=== PATIENT | male | born 1960 | race Two or more races ===

== ENCOUNTER 2022-09-06 03:10 | Emergency (ER) | payer MEDICARE, MEDICAID ==
[~2022-09-06] VITALS: Ht 182.9 cm; Wt 77.0 kg
[2022-09-06 03:13] VITALS: O2SAT 100
[2022-09-06] MEDS ORDERED: KETOROLAC 30MG/ML VIAL IV STA (03:41)
[2022-09-06] MEDS ORDERED: FAMOTIDINE 20MG/2ML VIAL IV ONE (03:45)
[2022-09-06] MEDS ORDERED: SODIUM CHLORIDE 0.9% 1,000 ML IV ONE ×2 (03:45→06:45)
[2022-09-06] MEDS ORDERED: ONDANSETRON HCL 4MG/2ML INJ IV ONE (03:45)
[2022-09-06 04:20] LABS: HEMATOCRIT. 53.4 % (42.0-52.0); HEMOGLOBIN. 17.6 g/dL (14.0-18.0); MEAN CORPUSCULAR HEMOGLOBIN 29.8 pg (28.0-32.0); MEAN CORPUSCULAR VOLUME 90.5 fL (80.0-94.0); MEAN PLATELET VOLUME 8.2 fl (7.4-10.4); PLATELET 338 x1000/uL (130-400); RED CELL DISTRIBUTION WIDTH 18.3 % (11.6-14.6)
[2022-09-06 04:27] LABS: CHLORIDE 87 mEq/L (98-107)
[2022-09-06 04:36] LABS: ETHANOL BLOOD < 10 mg/dL (-10)
[2022-09-06 05:00] LABS: PLATELET ESTIMATE NORMAL
[2022-09-06 06:35] LABS: CLARITY URINE CLEAR (CLEAR); COLOR URINE YELLOW (YELLOW); KETONES URINE 4+ (NEGATIVE); LEUKOCYTE ESTERASE URINE NEGATIVE (NEGATIVE); NITRITE URINE NEGATIVE (NEGATIVE); OCCULT BLOOD URINE NEGATIVE (NEGATIVE); PH URINE 5.5 (4.5-8.0); PROTEIN URINE 2+ (NEGATIVE); SPECIFIC GRAVITY URINE 1.022 (1.005-1.030)
[2022-09-06] MEDS ORDERED: ONDANSETRON HCL 4MG/2ML INJ IV STA (06:42)
[2022-09-06] MEDS ORDERED: HYDROCODONE/ACETAMINOPHEN 5/325MG TABLET PO STA (06:42)
[2022-09-06 06:53] LABS: *AMPHETAMINES SCREEN URINE NEGATIVE (NEGATIVE); *BARBITURATES SCREEN URINE NEGATIVE (NEGATIVE); *BENZODIAZEPINES SCREEN URINE NEGATIVE (NEGATIVE); *COCAINE SCREEN URINE NEGATIVE (NEGATIVE); CANNABINOID URINE SCREEN PRESUMTIVE POSITIVE (NEGATIVE); METHADONE URINE SCREEN NEGATIVE (NEGATIVE); OPIATES URINE SCREEN PRESUMTIVE POSITIVE (NEGATIVE); PHENCYCLIDINE URINE SCREEN NEGATIVE (NEGATIVE)
[2022-09-06] MEDS ORDERED: OXYCODONE HCL/ACETAMINOPHEN 5/325MG TABLET PO ONE (07:15)
[2022-09-06] MEDS ORDERED: AMOX1TAB16 PO ×3 (07:28→09:01)
[2022-09-06] MEDS ORDERED: ONDA4TAB50 PO ×3 (07:28→09:01)
[2022-09-06] MEDS ORDERED: TOPUD PO ×3 (07:28→09:01)
[2022-09-06] MEDS ORDERED: ONDANSETRON HCL 4MG TABLET PO ONE (07:45)
[2022-09-06 09:11] VITALS: BP 128/95; PULSE 84; RESP 16; TEMP 97.8
== END 2022-09-06 09:13 | disposition home or self-care (01) ==
LOC: ER 06:22
DX: K29.00 Acute gastritis without bleeding (principal); J02.9 Acute pharyngitis, unspecified; R11.2 Nausea with vomiting, unspecified; J44.1 Chronic obstructive pulmonary disease with (acute) exacerbation; Z20.822 Contact with and (suspected) exposure to COVID-19
CPT/HCPCS: 80053; 80305; 81003; 80320; 87430; 83690; 85025; 87070; 36415; 96361; 96374; 96375; 99284; 87426; J3490; J1885; J2405; J7030; C9803; G0480

== ENCOUNTER 2022-11-17 12:38 | Inpatient (IN) | payer MEDICARE, MEDICAID ==
[~2022-11-17] VITALS: Ht 180.3 cm; Wt 63.5 kg
[~2022-11-17 12:38] MED LIST: AMOX1TAB16 PO; ONDA4TAB50 PO; TOPUD PO
[2022-11-17] MEDS ORDERED: SODIUM CHLORIDE 0.9% 1,000 ML IV ONE (12:45)
[2022-11-17] MEDS ORDERED: PANTOPRAZOLE SODIUM 40 MG/VIAL IV ONE (13:15)
[2022-11-17 13:27] LABS: HEMOGLOBIN. 17.1 g/dL (14.0-18.0); MEAN CORPUSCULAR HEMOGLOBIN 29.7 pg (28.0-32.0); MEAN CORPUSCULAR HGB CONC 31.7 g/dL (31.0-37.0); MEAN CORPUSCULAR VOLUME 93.6 fL (80.0-94.0); MEAN PLATELET VOLUME 8.4 fl (7.4-10.4); PLATELET 198 x1000/uL (130-400); RED BLOOD CELL COUNT 5.77 mill/uL (4.7-6.1); RED CELL DISTRIBUTION WIDTH 17.3 % (11.6-14.6); WHITE BLOOD COUNT 11.3 x1000/uL (4.5-11.0)
[2022-11-17 13:35] LABS: DIFFERENTIAL COMMENT 1
[2022-11-17 13:37] LABS: INDEX HEMOLYSI 2 (1-3); INDEX ICTERIC 1 (1-4); INDEX LIPEMIC 1 (1-3)
[2022-11-17 13:45] LABS: D-DIMER 11.26 mg/L FEU (<0.50); INR 0.9; PROTHROMBIN TIME 10.2 sec (9.6-11.0)
[2022-11-17 13:49] LABS: NT PRO B-TYPE NATRIURETIC PEP 446 pg/mL (5-125)
[2022-11-17 13:52] LABS: ETHANOL BLOOD 407 mg/dL (-10); TROPONIN I HIGH SENSITIVITY 746 ng/L (<78)
[2022-11-17 14:06] LABS: PLATELET ESTIMATE NORMAL
[2022-11-17] MEDS ORDERED: ONDANSETRON HCL 4MG/2ML INJ IV NR (14:15)
[2022-11-17 14:46] LABS: ALANINE AMINOTRANSFERASE 101 IU/L (13-61); ALBUMIN 3.7 g/dL (3.4-5.0); ASPARTATE AMINOTRANSFERASE 217 IU/L (15-37); BILIRUBIN TOTAL 0.9 mg/dL (0.1-1.0); CALCIUM 8.1 mg/dL (8.5-10.1); CARBON DIOXIDE 14 mEq/L (21-32); CHLORIDE 88 mEq/L (98-107); CREATININE 1.4 mg/dL (0.6-1.3); GLUCOSE 134 mg/dL (70-105); POTASSIUM 3.7 mEq/L (3.5-5.1); PROTEIN TOTAL 7.8 g/dL (6.0-8.3); SODIUM 139 mEq/L (136-145); UREA NITROGEN BLOOD 20 mg/dL (7-21)
[2022-11-17] MEDS ORDERED: ASPIRIN 81MG TABLET PO ONE (15:00)
[2022-11-17] MEDS ORDERED: SODIUM CHLORIDE 0.9% 1000ML BAG (SEPSIS BOLUS) IV ONE (15:45)
[2022-11-17 16:45] LABS: LACTIC ACID 7.2 mmol/L (0.4-2.0)
[2022-11-17] MEDS ORDERED: VANCOMYCIN 1G PREMIX 200 ML IV ONE (17:30)
[2022-11-17] MEDS ORDERED: FOLIC ACID 1 MG, THIAMINE HCL 100 MG, MVI, ADULT NO.1 10 ML in DEXTROSE 5% WATER 1,000 ML IV ONE ×4 (17:30)
[2022-11-17] MEDS ORDERED: PIPERACILLIN/TAZ 3.375G PREMIX 50 ML IV ONE (17:30)
[2022-11-17 17:49] LABS: CLARITY URINE CLOUDY (CLEAR); COLOR URINE DARK YELLOW (YELLOW); GLUCOSE URINE NEGATIVE (NEGATIVE); KETONES URINE 2+ (NEGATIVE); LEUKOCYTE ESTERASE URINE NEGATIVE (NEGATIVE); NITRITE URINE NEGATIVE (NEGATIVE); OCCULT BLOOD URINE NEGATIVE (NEGATIVE); PH URINE 5.5 (4.5-8.0); PROTEIN URINE 2+ (NEGATIVE); SPECIFIC GRAVITY URINE 1.019 (1.005-1.030)
[2022-11-17 17:52] LABS: SQUAMOUS EPITHELIAL CELL URINE 1+ /lpf (RARE/1+); YEAST URINE NONE SEEN
[2022-11-17 17:59] LABS: PHOSPHORUS 6.3 mg/dL (2.5-4.9)
[2022-11-17] MEDS ORDERED: DIPHENHYDRAMINE 50MG/ML VIAL IV PRN (18:00)
[2022-11-17 18:03] LABS: *AMPHETAMINES SCREEN URINE NEGATIVE (NEGATIVE); *BARBITURATES SCREEN URINE NEGATIVE (NEGATIVE); *BENZODIAZEPINES SCREEN URINE NEGATIVE (NEGATIVE); *COCAINE SCREEN URINE NEGATIVE (NEGATIVE); CANNABINOID URINE SCREEN PRESUMTIVE POSITIVE (NEGATIVE); ECSTASY MDMA SCREEN URINE NEGATIVE (NEGATIVE); METHADONE URINE SCREEN NEGATIVE (NEGATIVE); OPIATES URINE SCREEN NEGATIVE (NEGATIVE); PHENCYCLIDINE URINE SCREEN NEGATIVE (NEGATIVE)
[2022-11-17] MEDS ORDERED: PANTOPRAZOLE SODIUM 40 MG/VIAL IV SCH (18:15)
[2022-11-17 18:19] LABS: BACTERIA URINE 2+; FINE GRANULAR CASTS URINE 0-5 /lpf; HYALINE CASTS URINE 0-5 /lpf; RBC URINE 0-2 /hpf (0-2); WBC URINE 0-2 /hpf (0-2)
[2022-11-17] MEDS ORDERED: NALOXONE HCL 0.4MG/ML VIAL IV PRN (18:30)
[2022-11-17] MEDS: LEVETIRACETAM 500MG PREMIX 100 ML IV SCH (19:01)
[2022-11-17] MEDS ORDERED: OCTREOTIDE 1,000 MCG in SODIUM CHLORIDE 0.9% 100 ML IV NR ×2 (20:00→20:15)
[2022-11-17 21:00] VITALS: BP 113/76; PULSE 114; RESP 25; TEMP 97.5
[2022-11-17] MEDS ORDERED: IOHEXOL-350 100 ML BOTTLE ONE (21:07)
[2022-11-17] MEDS: ONDANSETRON HCL 4MG/2ML INJ IV PRN (21:51)
[2022-11-17] MEDS: MORPHINE SULFATE 2 MG/ML CPJ (NOT FOR IM USE) IV PRN (21:52)
[2022-11-17 22:00] VITALS: PULSE 125
[2022-11-17] MEDS ORDERED: PIPERACILLIN/TAZ 3.375G PREMIX 50 ML IV SCH (22:00)
[2022-11-17 22:08] LABS: LACTIC ACID 5.9 mmol/L (0.4-2.0)
[2022-11-18] VITALS (14 sets, daily range): BP systolic 119–154; BP diastolic 66–132; PULSE 98–169; RESP 12–31; TEMP 97.5–100.3
[2022-11-18] MEDS ORDERED: VANCOMYCIN 750MG PREMIX 150 ML IV SCH
[2022-11-18 00:31] LABS: CREATINE KINASE MB FRACTION 11.4 ng/mL (0.5-3.6)
[2022-11-18 01:20] LABS: HEMOGLOBIN 12.7 g/dL (14.0-18.0)
[2022-11-18] MEDS ORDERED: SODIUM CHLORIDE 0.9% 1,000 ML IV NR (01:45)
[2022-11-18] MEDS ORDERED: HYDROCODONE/ACETAMINOPHEN 5/325MG TABLET PO NR (02:30)
[2022-11-18 02:42] LABS: LACTIC ACID 4.8 mmol/L (0.4-2.0)
[2022-11-18] MEDS ORDERED: MORPHINE SULFATE 2 MG/ML CPJ (NOT FOR IM USE) IV NR (02:45)
[2022-11-18] MEDS: ONDANSETRON HCL 4MG/2ML INJ IV PRN ×2 (02:55→18:38)
[2022-11-18] MEDS: LORAZEPAM 2MG/ML CPJ IV PRN ×2 (04:03→10:36)
[2022-11-18] MEDS ORDERED: HYDR-4001 MT (05:46)
[2022-11-18] MEDS ORDERED: LORA-249 MT (05:46)
[2022-11-18] MEDS ORDERED: LEVE1000 MT (05:46)
[2022-11-18] MEDS ORDERED: TRAZ-251 MT (05:46)
[2022-11-18] MEDS: VANCOMYCIN 750MG PREMIX 150 ML IV SCH ×2 (06:17→17:50)
[2022-11-18] MEDS: PANTOPRAZOLE SODIUM 40 MG/VIAL IV SCH ×2 (06:41→17:50)
[2022-11-18] MEDS: PIPERACILLIN/TAZOBACTAM 3.375 G in DEXTROSE 5% WATER 50 ML IV SCH ×3 (06:56→22:00)
[2022-11-18] MEDS: MORPHINE SULFATE 2 MG/ML CPJ (NOT FOR IM USE) IV PRN ×3 (08:18→18:39)
[2022-11-18] MEDS ORDERED: MVI, ADULT NO.1 10 ML, THIAMINE HCL 100 MG, FOLIC ACID 1 MG in SODIUM CHLORIDE 0.9% 1,0... IV SCH ×4 (09:00)
[2022-11-18] MEDS ORDERED: THIAMINE HCL 100 MG/1 ML 2ML VIAL IM SCH (09:00)
[2022-11-18] MEDS: SODIUM CHLORIDE 0.9% 1,000 ML IV SCH (11:10)
[2022-11-18] MEDS: LEVETIRACETAM 500MG PREMIX 100 ML IV SCH ×2 (11:16→21:59)
[2022-11-18] MEDS ORDERED: METOPROLOL TARTRATE 5MG/5ML VIAL IV PRN (12:45)
[2022-11-18] MEDS: MVI, ADULT NO.1 10 ML, THIAMINE HCL 100 MG, FOLIC ACID 1 MG in SODIUM CHLORIDE 0.9% 1,0... IV SCH ×4 (12:49)
[2022-11-18 13:23] LABS: HEMATOCRIT 34.7 % (42.0-52.0); HEMOGLOBIN 11.6 g/dL (14.0-18.0); MEAN CORPUSCULAR HEMOGLOBIN 30.5 pg (28.0-32.0); MEAN CORPUSCULAR HGB CONC 33.3 g/dL (31.0-37.0); MEAN CORPUSCULAR VOLUME 91.4 fL (80.0-94.0); PLATELET 87 x1000/uL (130-400); RED BLOOD CELL COUNT 3.79 mill/uL (4.7-6.1); RED CELL DISTRIBUTION WIDTH 16.5 % (11.6-14.6); WHITE BLOOD COUNT 6.5 x1000/uL (4.5-11.0)
[2022-11-18] MEDS: CHLORDIAZEPOXIDE 25MG CAPSULE PO SCH ×2 (13:23→22:00)
[2022-11-18] MEDS ORDERED: XARELTO (14:00)
[2022-11-18 15:25] LABS: INDEX HEMOLYSI 1 (1-3); INDEX ICTERIC 1 (1-4); INDEX LIPEMIC 1 (1-3)
[2022-11-18 16:43] LABS: ALANINE AMINOTRANSFERASE 62 IU/L (13-61); ALBUMIN 2.6 g/dL (3.4-5.0); AMYLASE 66 IU/L (25-115); ASPARTATE AMINOTRANSFERASE 107 IU/L (15-37); BETA HYDROXYBUTYRATE 3.4 mMol/L (0.0-0.3); CALCIUM 7.3 mg/dL (8.5-10.1); CARBON DIOXIDE 26 mEq/L (21-32); CHLORIDE 104 mEq/L (98-107); CREATINE KINASE 126 IU/L (39-308); CREATINE KINASE MB FRACTION 10.5 ng/mL (0.5-3.6); CREATININE 0.8 mg/dL (0.6-1.3); GLUCOSE 233 mg/dL (70-105); POTASSIUM 3.9 mEq/L (3.5-5.1); PROTEIN TOTAL 5.5 g/dL (6.0-8.3); SODIUM 142 mEq/L (136-145); UREA NITROGEN BLOOD 41 mg/dL (7-21)
[2022-11-18 17:29] LABS: PHOSPHORUS 0.4 mg/dL (2.5-4.9); TROPONIN I HIGH SENSITIVITY 1125 ng/L (<78)
[2022-11-18] MEDS ORDERED: MAGNESIUM 2 G PREMIX 50 ML IV SCH (18:30)
[2022-11-18] MEDS ORDERED: SODIUM PHOS,M-BASIC-D-BASIC 20 MM in DEXT 5% WATER 243.3333 ML IV SCH (18:30)
[2022-11-18 18:44] LABS: HEMATOCRIT 33.8 % (42.0-52.0); HEMOGLOBIN 11.3 g/dL (14.0-18.0); MEAN CORPUSCULAR HEMOGLOBIN 30.3 pg (28.0-32.0); MEAN CORPUSCULAR HGB CONC 33.4 g/dL (31.0-37.0); MEAN CORPUSCULAR VOLUME 90.6 fL (80.0-94.0); PLATELET 79 x1000/uL (130-400); RED BLOOD CELL COUNT 3.73 mill/uL (4.7-6.1); RED CELL DISTRIBUTION WIDTH 16.6 % (11.6-14.6); WHITE BLOOD COUNT 7.2 x1000/uL (4.5-11.0)
[2022-11-18 19:09] LABS: TROPONIN I HIGH SENSITIVITY 887 ng/L (<78)
[2022-11-18] MEDS ORDERED: LEVETIRACETAM 500MG PREMIX 100 ML IV SCH (21:00)
[2022-11-18] MEDS: PROPRANOLOL HCL 10MG TABLET PO SCH (22:00)
[2022-11-19] VITALS (11 sets, daily range): BP systolic 119–147; BP diastolic 72–99; PULSE 56–104; RESP 13–30; TEMP 97.6–98.8
[2022-11-19] MEDS: LORAZEPAM 2MG/ML CPJ IV PRN ×3 (00:05→22:51)
[2022-11-19] MEDS: SODIUM CHLORIDE 0.9% 1,000 ML IV SCH ×2 (00:09→07:00)
[2022-11-19 01:23] LABS: HEMATOCRIT 33.6 % (42.0-52.0); HEMOGLOBIN 11.1 g/dL (14.0-18.0); MEAN CORPUSCULAR HGB CONC 33.2 g/dL (31.0-37.0); MEAN CORPUSCULAR VOLUME 90.6 fL (80.0-94.0); PLATELET 67 x1000/uL (130-400); RED CELL DISTRIBUTION WIDTH 15.9 % (11.6-14.6); WHITE BLOOD COUNT 7.1 x1000/uL (4.5-11.0)
[2022-11-19 01:53] LABS: TROPONIN I HIGH SENSITIVITY 503 ng/L (<78)
[2022-11-19] MEDS: PIPERACILLIN/TAZOBACTAM 3.375 G in DEXTROSE 5% WATER 50 ML IV SCH ×3 (06:03→21:00)
[2022-11-19] MEDS: PANTOPRAZOLE SODIUM 40 MG/VIAL IV SCH ×2 (06:04→17:21)
[2022-11-19] MEDS: CHLORDIAZEPOXIDE 25MG CAPSULE PO SCH ×3 (06:07→17:20)
[2022-11-19 09:14] LABS: VITAMIN B12 SERUM 587 pg/mL (211-911)
[2022-11-19] MEDS: LEVETIRACETAM 500MG PREMIX 100 ML IV SCH ×2 (09:16→21:00)
[2022-11-19] MEDS: MVI, ADULT NO.1 10 ML, THIAMINE HCL 100 MG, FOLIC ACID 1 MG in SODIUM CHLORIDE 0.9% 1,0... IV SCH ×4 (09:31)
[2022-11-19] MEDS: PROPRANOLOL HCL 10MG TABLET PO SCH (09:31)
[2022-11-19] MEDS: VANCOMYCIN 750MG PREMIX 150 ML IV SCH (09:31)
[2022-11-19 10:33] LABS: HEMATOCRIT 35.2 % (42.0-52.0); HEMOGLOBIN 11.4 g/dL (14.0-18.0); MEAN CORPUSCULAR HEMOGLOBIN 29.7 pg (28.0-32.0); MEAN CORPUSCULAR HGB CONC 32.3 g/dL (31.0-37.0); MEAN CORPUSCULAR VOLUME 92.1 fL (80.0-94.0); PLATELET 68 x1000/uL (130-400); RED BLOOD CELL COUNT 3.82 mill/uL (4.7-6.1); RED CELL DISTRIBUTION WIDTH 16.2 % (11.6-14.6); WHITE BLOOD COUNT 8.2 x1000/uL (4.5-11.0)
[2022-11-19] MEDS ORDERED: OCTREOTIDE 1,000 MCG in SODIUM CHLORIDE 0.9% 98 ML IV SCH (11:00)
[2022-11-19 11:02] LABS: CHLORIDE 95 mEq/L (98-107); INDEX HEMOLYSI 1 (1-3); INDEX ICTERIC 1 (1-4); INDEX LIPEMIC 1 (1-3); SODIUM 140 mEq/L (136-145)
[2022-11-19 11:11] LABS: ALANINE AMINOTRANSFERASE 53 IU/L (13-61); ALBUMIN 2.5 g/dL (3.4-5.0); ASPARTATE AMINOTRANSFERASE 70 IU/L (15-37); BILIRUBIN DIRECT 0.2 mg/dL (0.0-0.2); BILIRUBIN TOTAL 0.8 mg/dL (0.1-1.0); CALCIUM 7.4 mg/dL (8.5-10.1); CARBON DIOXIDE 31 mEq/L (21-32); CREATININE 0.5 mg/dL (0.6-1.3); GLUCOSE 145 mg/dL (70-105); IRON 99 ug/dL (50-175); PROTEIN TOTAL 5.6 g/dL (6.0-8.3); TOTAL IRON BINDING CAPACITY 184 ug/dL (250-450); UREA NITROGEN BLOOD 16 mg/dL (7-21)
[2022-11-19 11:26] LABS: POTASSIUM 2.7 mEq/L (3.5-5.1)
[2022-11-19 11:56] LABS: PHOSPHORUS 1.2 mg/dL (2.5-4.9)
[2022-11-19] MEDS ORDERED: POTASSIUM CHLORIDE 20MEQ TABLET SR PO NR (12:00)
[2022-11-19] MEDS ORDERED: POTASSIUM CHLORIDE INJ 40 MEQ in DEXT 5% WATER 250 ML IV ONE (14:00)
[2022-11-19] MEDS: KCL 20MEQ/100ML X 2 FOR TOTAL KCL 40MEQ/200ML IV SCH ×2 (14:52→17:21)
[2022-11-19] MEDS ORDERED: SODIUM PHOS,M-BASIC-D-BASIC 15 MM in DEXT 5% WATER 245 ML IV NR (17:00)
[2022-11-19] MEDS ORDERED: VANCOMYCIN 1G PREMIX 200 ML IV SCH ×2 (18:00→20:00)
[2022-11-19 20:31] LABS: HEMATOCRIT 32.7 % (42.0-52.0); HEMOGLOBIN 10.7 g/dL (14.0-18.0); MEAN CORPUSCULAR HEMOGLOBIN 30.2 pg (28.0-32.0); MEAN CORPUSCULAR HGB CONC 32.7 g/dL (31.0-37.0); MEAN CORPUSCULAR VOLUME 92.2 fL (80.0-94.0); PLATELET 58 x1000/uL (130-400); RED BLOOD CELL COUNT 3.55 mill/uL (4.7-6.1); RED CELL DISTRIBUTION WIDTH 16.6 % (11.6-14.6); WHITE BLOOD COUNT 7.5 x1000/uL (4.5-11.0)
[2022-11-19 20:37] LABS: CHLORIDE 98 mEq/L (98-107); INDEX HEMOLYSI 1 (1-3); INDEX ICTERIC 1 (1-4); INDEX LIPEMIC 1 (1-3); POTASSIUM 2.9 mEq/L (3.5-5.1); SODIUM 139 mEq/L (136-145)
[2022-11-19 20:43] LABS: CALCIUM 7.1 mg/dL (8.5-10.1); CARBON DIOXIDE 30 mEq/L (21-32); CREATININE 0.5 mg/dL (0.6-1.3); GLUCOSE 134 mg/dL (70-105); UREA NITROGEN BLOOD 11 mg/dL (7-21)
[2022-11-19] MEDS: MORPHINE SULFATE 2 MG/ML CPJ (NOT FOR IM USE) IV PRN (20:57)
[2022-11-20] VITALS (12 sets, daily range): BP systolic 116–148; BP diastolic 67–103; PULSE 54–112; RESP 15–33; TEMP 97.5–98.3
[2022-11-20 01:42] LABS: HEMATOCRIT 29.9 % (42.0-52.0); HEMOGLOBIN 9.9 g/dL (14.0-18.0); MEAN CORPUSCULAR HGB CONC 33.1 g/dL (31.0-37.0); MEAN CORPUSCULAR VOLUME 90.5 fL (80.0-94.0); PLATELET 62 x1000/uL (130-400); RED BLOOD CELL COUNT 3.31 mill/uL (4.7-6.1); WHITE BLOOD COUNT 6.5 x1000/uL (4.5-11.0)
[2022-11-20] MEDS ORDERED: VANCOMYCIN 750MG PREMIX 150 ML IV SCH (02:00)
[2022-11-20] MEDS: VANCOMYCIN 750MG PREMIX 150 ML IV SCH ×2 (04:21→12:30)
[2022-11-20] MEDS: PIPERACILLIN/TAZOBACTAM 3.375 G in DEXTROSE 5% WATER 50 ML IV SCH ×2 (05:02→14:04)
[2022-11-20] MEDS: PANTOPRAZOLE SODIUM 40 MG/VIAL IV SCH ×2 (05:02→17:50)
[2022-11-20] MEDS: LORAZEPAM 2MG/ML CPJ IV PRN ×5 (05:43→23:20)
[2022-11-20 07:06] LABS: BASOPHILS % 0.1 % (0.0-2.0); EOSINOPHILS % 1.5 % (0.0-5.0); HEMATOCRIT. 29.1 % (42.0-52.0); HEMOGLOBIN. 9.8 g/dL (14.0-18.0); LYMPHOCYTES % 22.1 % (20.0-50.0); MEAN CORPUSCULAR HGB CONC 33.6 g/dL (31.0-37.0); MEAN CORPUSCULAR VOLUME 89.3 fL (80.0-94.0); MEAN PLATELET VOLUME 9.9 fl (7.4-10.4); MONOCYTES % 3.1 % (2.0-8.0); NEUTROPHILS % 73.2 % (40.0-76.0); PLATELET 60 x1000/uL (130-400); RED BLOOD CELL COUNT 3.26 mill/uL (4.7-6.1); RED CELL DISTRIBUTION WIDTH 16.1 % (11.6-14.6); WHITE BLOOD COUNT 6.3 x1000/uL (4.5-11.0)
[2022-11-20 07:13] LABS: PROTHROMBIN TIME 10.9 sec (9.6-11.0)
[2022-11-20 07:15] LABS: CHLORIDE 97 mEq/L (98-107); INDEX HEMOLYSI 1 (1-3); INDEX ICTERIC 1 (1-4); INDEX LIPEMIC 1 (1-3); SODIUM 141 mEq/L (136-145)
[2022-11-20 07:25] LABS: ALANINE AMINOTRANSFERASE 43 IU/L (13-61); ALBUMIN 2.4 g/dL (3.4-5.0); ASPARTATE AMINOTRANSFERASE 45 IU/L (15-37); BILIRUBIN DIRECT 0.2 mg/dL (0.0-0.2); BILIRUBIN TOTAL 0.8 mg/dL (0.1-1.0); CALCIUM 7.1 mg/dL (8.5-10.1); CARBON DIOXIDE 34 mEq/L (21-32); CREATININE 0.5 mg/dL (0.6-1.3); GLUCOSE 168 mg/dL (70-105); UREA NITROGEN BLOOD 8 mg/dL (7-21)
[2022-11-20 07:57] LABS: POTASSIUM 2.6 mEq/L (3.5-5.1)
[2022-11-20] MEDS: LEVETIRACETAM 500MG PREMIX 100 ML IV SCH ×2 (08:19→22:15)
[2022-11-20] MEDS: MVI, ADULT NO.1 10 ML, THIAMINE HCL 100 MG, FOLIC ACID 1 MG in SODIUM CHLORIDE 0.9% 1,0... IV SCH ×4 (08:19)
[2022-11-20] MEDS: CHLORDIAZEPOXIDE 25MG CAPSULE PO SCH ×2 (08:19→16:34)
[2022-11-20] MEDS: KCL 20MEQ/100ML PREMIX 100 ML IV SCH ×4 (08:48→20:28)
[2022-11-20] MEDS: MORPHINE SULFATE 2 MG/ML CPJ (NOT FOR IM USE) IV PRN ×2 (10:35→15:42)
[2022-11-20 12:30] LABS: HEMATOCRIT 29.7 % (42.0-52.0); HEMOGLOBIN 9.9 g/dL (14.0-18.0); MEAN CORPUSCULAR HEMOGLOBIN 30.1 pg (28.0-32.0); MEAN CORPUSCULAR HGB CONC 33.4 g/dL (31.0-37.0); MEAN CORPUSCULAR VOLUME 90.3 fL (80.0-94.0); PLATELET 65 x1000/uL (130-400); RED BLOOD CELL COUNT 3.29 mill/uL (4.7-6.1); RED CELL DISTRIBUTION WIDTH 16.2 % (11.6-14.6); WHITE BLOOD COUNT 6.6 x1000/uL (4.5-11.0)
[2022-11-20 12:53] LABS: PHOSPHORUS 1.7 mg/dL (2.5-4.9)
[2022-11-20 17:40] LABS: FERRITIN 538 ng/mL (22-322)
[2022-11-20] MEDS ORDERED: SODIUM PHOS,M-BASIC-D-BASIC 10 MM in DEXT 5% WATER 246.6667 ML IV NR (18:30)
[2022-11-20] MEDS ORDERED: MAGNESIUM 2 G PREMIX 50 ML IV NR (23:30)
[2022-11-21] VITALS (10 sets, daily range): BP systolic 111–134; BP diastolic 57–88; PULSE 79–162; RESP 18–30; TEMP 97.6–98.4
[2022-11-21 04:01] LABS: BASOPHILS % 0.2 % (0.0-2.0); EOSINOPHILS % 1.3 % (0.0-5.0); HEMATOCRIT. 32.7 % (42.0-52.0); HEMOGLOBIN. 10.9 g/dL (14.0-18.0); MEAN CORPUSCULAR HEMOGLOBIN 30.2 pg (28.0-32.0); MEAN CORPUSCULAR HGB CONC 33.3 g/dL (31.0-37.0); MEAN CORPUSCULAR VOLUME 90.9 fL (80.0-94.0); MEAN PLATELET VOLUME 9.3 fl (7.4-10.4); MONOCYTES % 4.6 % (2.0-8.0); NEUTROPHILS % 69.9 % (40.0-76.0); PLATELET 81 x1000/uL (130-400); RED BLOOD CELL COUNT 3.59 mill/uL (4.7-6.1); RED CELL DISTRIBUTION WIDTH 15.9 % (11.6-14.6)
[2022-11-21 04:21] LABS: CHLORIDE 100 mEq/L (98-107); INDEX HEMOLYSI 1 (1-3); INDEX ICTERIC 1 (1-4); INDEX LIPEMIC 1 (1-3); POTASSIUM 2.9 mEq/L (3.5-5.1); SODIUM 139 mEq/L (136-145)
[2022-11-21 04:31] LABS: ALANINE AMINOTRANSFERASE 43 IU/L (13-61); ALBUMIN 2.6 g/dL (3.4-5.0); AMYLASE 95 IU/L (25-115); ASPARTATE AMINOTRANSFERASE 37 IU/L (15-37); BILIRUBIN DIRECT 0.2 mg/dL (0.0-0.2); BILIRUBIN TOTAL 0.7 mg/dL (0.1-1.0); CALCIUM 7.3 mg/dL (8.5-10.1); CARBON DIOXIDE 33 mEq/L (21-32); CREATININE 0.5 mg/dL (0.6-1.3); GLUCOSE 110 mg/dL (70-105); UREA NITROGEN BLOOD 5 mg/dL (7-21)
[2022-11-21 04:55] LABS: PROTHROMBIN TIME 10.5 sec (9.6-11.0)
[2022-11-21] MEDS: PANTOPRAZOLE SODIUM 40 MG/VIAL IV SCH (05:56)
[2022-11-21] MEDS: MORPHINE SULFATE 2 MG/ML CPJ (NOT FOR IM USE) IV PRN (06:00)
[2022-11-21] MEDS ORDERED: POTASSIUM CHLORIDE 20MEQ TABLET SR PO SCH (07:15)
[2022-11-21] MEDS ORDERED: SODIUM PHOS,M-BASIC-D-BASIC 10 MM in DEXT 5% WATER 246.6667 ML IV ONE (07:15)
[2022-11-21] MEDS ORDERED: POTASSIUM PHOS,M-BASIC-D-BASIC 30 MMOL in DEXT 5% WATER 500 ML IV ONE (08:30)
[2022-11-21] MEDS: LEVETIRACETAM 500MG PREMIX 100 ML IV SCH ×2 (08:49→23:26)
[2022-11-21] MEDS: CHLORDIAZEPOXIDE 25MG CAPSULE PO SCH ×2 (09:00→17:53)
[2022-11-21] MEDS: MAGNESIUM OXIDE 400MG TABLET PO SCH (09:00)
[2022-11-21] MEDS ORDERED: MAGNESIUM 2 G PREMIX 50 ML IV NR (11:00)
[2022-11-21] MEDS ORDERED: SIMETHICONE 40 MG/0.6 ML 15ML ONE (11:04)
[2022-11-21] MEDS ORDERED: HYDROMORPHONE HCL/PF 2MG/ML CPJ IV PRN (11:15)
[2022-11-21] MEDS ORDERED: ONDANSETRON HCL 4MG/2ML INJ IV PRN (11:15)
[2022-11-21] MEDS ORDERED: MEPERIDINE HCL/PF 25MG/ML CPJ IV PRN (11:15)
[2022-11-21] MEDS ORDERED: LABETALOL 5MG/ML SYR 20 MG/4 ML SYRINGE IV PRN (11:15)
[2022-11-21] MEDS ORDERED: DIGOXIN 500MCG/2ML AMP IV PRN (13:00)
[2022-11-21] MEDS: SUCRALFATE 1 G/10 ML UDC PO SCH ×3 (14:18→23:26)
[2022-11-21] MEDS: METOCLOPRAMIDE HCL 10MG/2ML VIAL IV SCH (23:26)
[2022-11-22] VITALS: BP 128/76; PULSE 86; RESP 18; TEMP 97.8
[2022-11-22 04:00] VITALS: BP 101/64; PULSE 88; RESP 18; TEMP 97.8
[2022-11-22 06:29] LABS: HEMATOCRIT. 27.8 % (42.0-52.0); HEMOGLOBIN. 9.3 g/dL (14.0-18.0); MEAN CORPUSCULAR HEMOGLOBIN 30.1 pg (28.0-32.0); MEAN CORPUSCULAR HGB CONC 33.6 g/dL (31.0-37.0); MEAN CORPUSCULAR VOLUME 89.8 fL (80.0-94.0); PLATELET 113 x1000/uL (130-400); RED BLOOD CELL COUNT 3.09 mill/uL (4.7-6.1); RED CELL DISTRIBUTION WIDTH 16.2 % (11.6-14.6); WHITE BLOOD COUNT 3.5 x1000/uL (4.5-11.0)
[2022-11-22 06:38] LABS: DIFFERENTIAL COMMENT 1
[2022-11-22 07:26] LABS: CHLORIDE 102 mEq/L (98-107); INDEX HEMOLYSI 1 (1-3); INDEX ICTERIC 1 (1-4); INDEX LIPEMIC 1 (1-3); POTASSIUM 3.2 mEq/L (3.5-5.1); SODIUM 139 mEq/L (136-145)
[2022-11-22 07:40] LABS: ALANINE AMINOTRANSFERASE 35 IU/L (13-61); ALBUMIN 2.1 g/dL (3.4-5.0); ASPARTATE AMINOTRANSFERASE 29 IU/L (15-37); BILIRUBIN DIRECT 0.2 mg/dL (0.0-0.2); CALCIUM 7.3 mg/dL (8.5-10.1); CARBON DIOXIDE 31 mEq/L (21-32); CREATININE 0.5 mg/dL (0.6-1.3); GLUCOSE 133 mg/dL (70-105); PROTEIN TOTAL 5.1 g/dL (6.0-8.3); TRIGLYCERIDE 51 mg/dL (0-150); UREA NITROGEN BLOOD 4 mg/dL (7-21)
[2022-11-22 08:00] VITALS: BP 114/78; PULSE 100; RESP 18; TEMP 97.8
[2022-11-22] MEDS: SUCRALFATE 1 G/10 ML UDC PO SCH ×4 (08:44→21:39)
[2022-11-22] MEDS: PANTOPRAZOLE SODIUM 40 MG/VIAL IV SCH (08:44)
[2022-11-22] MEDS: METOCLOPRAMIDE HCL 10MG/2ML VIAL IV SCH ×4 (08:44→22:04)
[2022-11-22] MEDS: LEVETIRACETAM 500MG PREMIX 100 ML IV SCH ×2 (08:44→22:05)
[2022-11-22] MEDS: CHLORDIAZEPOXIDE 25MG CAPSULE PO SCH (08:45)
[2022-11-22] MEDS: MAGNESIUM OXIDE 400MG TABLET PO SCH (08:48)
[2022-11-22] MEDS: MORPHINE SULFATE 2 MG/ML CPJ (NOT FOR IM USE) IV PRN (09:06)
[2022-11-22] MEDS ORDERED: POTASSIUM CHLORIDE 20MEQ/PACKET PO NR ×2 (10:00→18:00)
[2022-11-22 12:00] VITALS: BP 102/64; PULSE 120; RESP 18; TEMP 99.2
[2022-11-22] MEDS: LORAZEPAM 2MG/ML CPJ IV PRN ×2 (12:54→17:41)
[2022-11-22] MEDS ORDERED: SODIUM CHLORIDE 0.9% 1,000 ML IV NR (13:15)
[2022-11-22 14:32] LABS: ANISOCYTOSIS 1+; PLATELET ESTIMATE SLIGHTLY DECREASED
[2022-11-22] MEDS ORDERED: IOHEXOL-350 100 ML BOTTLE ONE (15:34)
[2022-11-22] MEDS: MULTIVITAMINS,THER W-MINERALS TABLET PO SCH (17:35)
[2022-11-22] MEDS: METOPROLOL TARTRATE 5MG/5ML VIAL IV PRN (17:41)
[2022-11-22] MEDS: THIAMINE HCL 100MG TABLET PO SCH (17:54)
[2022-11-22] MEDS: SODIUM CHLORIDE 0.9% 1,000 ML IV SCH (17:56)
[2022-11-22 20:00] VITALS: BP 108/76; PULSE 103; RESP 32; TEMP 97.7
[2022-11-22 22:00] VITALS: BP 116/79; PULSE 100; RESP 31
[2022-11-23] VITALS (12 sets, daily range): BP systolic 93–123; BP diastolic 54–106; PULSE 93–205; RESP 21–36; TEMP 97.9–99.2
[2022-11-23] MEDS: MORPHINE SULFATE 2 MG/ML CPJ (NOT FOR IM USE) IV PRN (05:48)
[2022-11-23 06:15] LABS: HEMATOCRIT. 27.5 % (42.0-52.0); HEMOGLOBIN. 9.1 g/dL (14.0-18.0); MEAN CORPUSCULAR HEMOGLOBIN 29.7 pg (28.0-32.0); MEAN CORPUSCULAR HGB CONC 33.2 g/dL (31.0-37.0); MEAN CORPUSCULAR VOLUME 89.5 fL (80.0-94.0); MEAN PLATELET VOLUME 8.1 fl (7.4-10.4); PLATELET 210 x1000/uL (130-400); RED BLOOD CELL COUNT 3.07 mill/uL (4.7-6.1); RED CELL DISTRIBUTION WIDTH 15.6 % (11.6-14.6); WHITE BLOOD COUNT 4.4 x1000/uL (4.5-11.0)
[2022-11-23 06:17] LABS: DIFFERENTIAL COMMENT 1
[2022-11-23 06:29] LABS: CHLORIDE 106 mEq/L (98-107); INDEX HEMOLYSI 1 (1-3); INDEX ICTERIC 1 (1-4); INDEX LIPEMIC 1 (1-3); POTASSIUM 3.5 mEq/L (3.5-5.1); SODIUM 137 mEq/L (136-145)
[2022-11-23 06:37] LABS: ALANINE AMINOTRANSFERASE 29 IU/L (13-61); ALBUMIN 2.1 g/dL (3.4-5.0); ASPARTATE AMINOTRANSFERASE 14 IU/L (15-37); BILIRUBIN DIRECT 0.2 mg/dL (0.0-0.2); BILIRUBIN TOTAL 0.8 mg/dL (0.1-1.0); CALCIUM 7.9 mg/dL (8.5-10.1); CARBON DIOXIDE 28 mEq/L (21-32); CREATININE 0.5 mg/dL (0.6-1.3); GLUCOSE 112 mg/dL (70-105); PROTEIN TOTAL 5.3 g/dL (6.0-8.3); UREA NITROGEN BLOOD 3 mg/dL (7-21)
[2022-11-23] MEDS: PANTOPRAZOLE SODIUM 40 MG/VIAL IV SCH (08:00)
[2022-11-23] MEDS: SUCRALFATE 1 G/10 ML UDC PO SCH ×4 (08:01→20:41)
[2022-11-23] MEDS: MULTIVITAMINS,THER W-MINERALS TABLET PO SCH (08:01)
[2022-11-23] MEDS: THIAMINE HCL 100MG TABLET PO SCH (08:01)
[2022-11-23] MEDS: LEVETIRACETAM 500MG PREMIX 100 ML IV SCH ×2 (08:01→20:40)
[2022-11-23] MEDS: METOCLOPRAMIDE HCL 10MG/2ML VIAL IV SCH ×4 (08:01→20:41)
[2022-11-23] MEDS: MAGNESIUM OXIDE 400MG TABLET PO SCH (08:05)
[2022-11-23 09:46] LABS: ANISOCYTOSIS 1+; PLATELET ESTIMATE NORMAL
[2022-11-23] MEDS: DEXT 5%/0.45% NACL KCL 20MEQ/L 1,000 ML IV SCH ×2 (11:25→23:50)
[2022-11-23] MEDS ORDERED: KCL 20MEQ/100ML PREMIX 100 ML IV NR (12:00)
[2022-11-23] MEDS: ONDANSETRON HCL 4MG/2ML INJ IV PRN (12:51)
[2022-11-23] MEDS: LORAZEPAM 2MG/ML CPJ IV PRN ×2 (15:43→20:41)
[2022-11-23] MEDS: METOPROLOL TARTRATE 5MG/5ML VIAL IV PRN (17:45)
[2022-11-23] MEDS ORDERED: LEVE500T98 MT (19:12)
[2022-11-23] MEDS ORDERED: THIA100T72 PO (19:12)
[2022-11-23] MEDS ORDERED: SUCR1ORA15 PO (19:12)
[2022-11-23] MEDS ORDERED: OMEP40CA20 PO (19:12)
[2022-11-23] MEDS: ACETAMINOPHEN 325MG TABLET PO PRN (20:41)
[2022-11-24] VITALS (12 sets, daily range): BP systolic 103–130; BP diastolic 66–93; PULSE 73–101; RESP 20–32; TEMP 97.7–98.5
[2022-11-24 06:13] LABS: HEMATOCRIT. 26.8 % (42.0-52.0); HEMOGLOBIN. 9.1 g/dL (14.0-18.0); MEAN CORPUSCULAR VOLUME 91.2 fL (80.0-94.0); MEAN PLATELET VOLUME 8.1 fl (7.4-10.4); PLATELET 281 x1000/uL (130-400); RED BLOOD CELL COUNT 2.94 mill/uL (4.7-6.1); RED CELL DISTRIBUTION WIDTH 15.6 % (11.6-14.6); WHITE BLOOD COUNT 5.3 x1000/uL (4.5-11.0)
[2022-11-24 06:19] LABS: DIFFERENTIAL COMMENT 1
[2022-11-24 08:05] LABS: CHLORIDE 110 mEq/L (98-107); INDEX HEMOLYSI 1 (1-3); INDEX ICTERIC 1 (1-4); INDEX LIPEMIC 1 (1-3); POTASSIUM 3.7 mEq/L (3.5-5.1); SODIUM 141 mEq/L (136-145)
[2022-11-24 08:13] LABS: ALANINE AMINOTRANSFERASE 25 IU/L (13-61); ASPARTATE AMINOTRANSFERASE 12 IU/L (15-37); BILIRUBIN DIRECT 0.1 mg/dL (0.0-0.2); BILIRUBIN TOTAL 0.6 mg/dL (0.1-1.0); CALCIUM 8.3 mg/dL (8.5-10.1); CARBON DIOXIDE 29 mEq/L (21-32); CREATININE 0.5 mg/dL (0.6-1.3); GLUCOSE 108 mg/dL (70-105); PROTEIN TOTAL 5.2 g/dL (6.0-8.3); UREA NITROGEN BLOOD 3 mg/dL (7-21)
[2022-11-24] MEDS: LEVETIRACETAM 500MG PREMIX 100 ML IV SCH ×2 (09:24→23:59)
[2022-11-24] MEDS: METOCLOPRAMIDE HCL 10MG/2ML VIAL IV SCH ×4 (09:24→21:00)
[2022-11-24] MEDS: SUCRALFATE 1 G/10 ML UDC PO SCH ×4 (09:24→23:59)
[2022-11-24] MEDS: PANTOPRAZOLE SODIUM 40 MG/VIAL IV SCH (09:24)
[2022-11-24] MEDS: MULTIVITAMINS,THER W-MINERALS TABLET PO SCH (09:25)
[2022-11-24] MEDS: MAGNESIUM OXIDE 400MG TABLET PO SCH (09:25)
[2022-11-24] MEDS: THIAMINE HCL 100MG TABLET PO SCH (09:25)
[2022-11-24] MEDS: DEXT 5%/0.45% NACL KCL 20MEQ/L 1,000 ML IV SCH (13:51)
[2022-11-24] MEDS: METOPROLOL TARTRATE 5MG/5ML VIAL IV PRN (14:26)
[2022-11-25] VITALS (9 sets, daily range): BP systolic 75–132; BP diastolic 47–84; PULSE 78–116; RESP 16–35; TEMP 97.8–99.1
[2022-11-25] MEDS: DEXT 5%/0.45% NACL KCL 20MEQ/L 1,000 ML IV SCH ×2 (02:30→15:53)
[2022-11-25] MEDS: ACETAMINOPHEN 325MG TABLET PO PRN (05:41)
[2022-11-25] MEDS: METOCLOPRAMIDE HCL 10MG/2ML VIAL IV SCH ×4 (07:30→21:00)
[2022-11-25 08:15] LABS: BASOPHILS % 0.3 % (0.0-2.0); EOSINOPHILS % 0.7 % (0.0-5.0); HEMATOCRIT. 26.5 % (42.0-52.0); HEMOGLOBIN. 9.3 g/dL (14.0-18.0); LYMPHOCYTES % 23.6 % (20.0-50.0); MEAN CORPUSCULAR HEMOGLOBIN 31.4 pg (28.0-32.0); MEAN CORPUSCULAR VOLUME 89.6 fL (80.0-94.0); MEAN PLATELET VOLUME 7.8 fl (7.4-10.4); MONOCYTES % 13.5 % (2.0-8.0); NEUTROPHILS % 61.9 % (40.0-76.0); PLATELET 388 x1000/uL (130-400); RED BLOOD CELL COUNT 2.96 mill/uL (4.7-6.1); RED CELL DISTRIBUTION WIDTH 15.9 % (11.6-14.6); WHITE BLOOD COUNT 7.4 x1000/uL (4.5-11.0)
[2022-11-25 08:22] LABS: CHLORIDE 106 mEq/L (98-107); INDEX HEMOLYSI 1 (1-3); INDEX ICTERIC 1 (1-4); INDEX LIPEMIC 1 (1-3); POTASSIUM 3.5 mEq/L (3.5-5.1); SODIUM 137 mEq/L (136-145)
[2022-11-25] MEDS: SUCRALFATE 1 G/10 ML UDC PO SCH ×3 (08:24→18:06)
[2022-11-25] MEDS: LEVETIRACETAM 500MG PREMIX 100 ML IV SCH ×3 (08:25→12:24)
[2022-11-25 08:35] LABS: ALANINE AMINOTRANSFERASE 23 IU/L (13-61); ALBUMIN 2.1 g/dL (3.4-5.0); ASPARTATE AMINOTRANSFERASE 17 IU/L (15-37); BILIRUBIN DIRECT 0.1 mg/dL (0.0-0.2); BILIRUBIN TOTAL 0.4 mg/dL (0.1-1.0); CALCIUM 8.1 mg/dL (8.5-10.1); CARBON DIOXIDE 24 mEq/L (21-32); CREATININE 0.5 mg/dL (0.6-1.3); GLUCOSE 104 mg/dL (70-105); PROTEIN TOTAL 5.3 g/dL (6.0-8.3); UREA NITROGEN BLOOD 2 mg/dL (7-21)
[2022-11-25] MEDS: MAGNESIUM OXIDE 400MG TABLET PO SCH ×2 (09:00→10:30)
[2022-11-25] MEDS: PANTOPRAZOLE SODIUM 40 MG/VIAL IV SCH (09:00)
[2022-11-25] MEDS ORDERED: LIDOCAINE HCL 1% 10 MG/ML 10ML VIAL ONE (09:05)
[2022-11-25] MEDS: THIAMINE HCL 100MG TABLET PO SCH ×2 (09:35→09:41)
[2022-11-25] MEDS: MULTIVITAMINS,THER W-MINERALS TABLET PO SCH ×2 (09:35→09:41)
[2022-11-25] MEDS ORDERED: MAGNESIUM 2 G PREMIX 50 ML IV NR (11:30)
[2022-11-25] MEDS: ONDANSETRON HCL 4MG/2ML INJ IV PRN ×3 (11:47→22:52)
[2022-11-25] MEDS ORDERED: KCL 20MEQ/100ML PREMIX 100 ML IV NR (12:00)
[2022-11-25] MEDS: LORAZEPAM 2MG/ML CPJ IV PRN ×3 (13:50→18:17)
[2022-11-25] MEDS: KETOROLAC 15MG/ML VIAL IV PRN (16:08)
[2022-11-25] MEDS ORDERED: DEXT 5%/0.9% NACL 1,000 ML IV SCH (16:45)
[2022-11-25 19:39] LABS: ANISOCYTOSIS 1+; PLATELET ESTIMATE NORMAL
[2022-11-26] VITALS: BP 115/79; PULSE 136; RESP 27; TEMP 98.9
[2022-11-26] MEDS: SUCRALFATE 1 G/10 ML UDC PO SCH ×5 (00:29→21:16)
[2022-11-26] MEDS: LORAZEPAM 2MG/ML CPJ IV PRN ×2 (00:29→08:52)
[2022-11-26] MEDS: KETOROLAC 15MG/ML VIAL IV PRN ×2 (00:32→06:11)
[2022-11-26 04:00] VITALS: BP 100/69; PULSE 82; RESP 16; TEMP 98.1
[2022-11-26] MEDS: DEXT 5%/0.45% NACL KCL 20MEQ/L 1,000 ML IV SCH (06:13)
[2022-11-26 08:00] VITALS: BP 106/61; PULSE 71; RESP 24; TEMP 97.9
[2022-11-26 08:22] LABS: BASOPHILS % 0.2 % (0.0-2.0); EOSINOPHILS % 0.6 % (0.0-5.0); HEMATOCRIT. 24.3 % (42.0-52.0); HEMOGLOBIN. 8.1 g/dL (14.0-18.0); LYMPHOCYTES % 28.4 % (20.0-50.0); MEAN CORPUSCULAR HEMOGLOBIN 29.9 pg (28.0-32.0); MEAN CORPUSCULAR HGB CONC 33.2 g/dL (31.0-37.0); MONOCYTES % 11.6 % (2.0-8.0); NEUTROPHILS % 59.2 % (40.0-76.0); PLATELET 404 x1000/uL (130-400); RED CELL DISTRIBUTION WIDTH 16.2 % (11.6-14.6)
[2022-11-26 08:31] LABS: CHLORIDE 105 mEq/L (98-107); INDEX HEMOLYSI 1 (1-3); INDEX ICTERIC 1 (1-4); INDEX LIPEMIC 1 (1-3); POTASSIUM 5.2 mEq/L (3.5-5.1); SODIUM 133 mEq/L (136-145)
[2022-11-26 08:41] LABS: ALANINE AMINOTRANSFERASE 17 IU/L (13-61); ALBUMIN 1.8 g/dL (3.4-5.0); ASPARTATE AMINOTRANSFERASE 13 IU/L (15-37); BILIRUBIN DIRECT < 0.1 mg/dL (0.0-0.2); BILIRUBIN TOTAL 0.4 mg/dL (0.1-1.0); CARBON DIOXIDE 24 mEq/L (21-32); CREATININE 0.6 mg/dL (0.6-1.3); PROTEIN TOTAL 4.6 g/dL (6.0-8.3); UREA NITROGEN BLOOD 4 mg/dL (7-21)
[2022-11-26] MEDS: MAGNESIUM OXIDE 400MG TABLET PO SCH (08:52)
[2022-11-26] MEDS: METOCLOPRAMIDE HCL 10MG/2ML VIAL IV SCH ×4 (08:52→21:16)
[2022-11-26] MEDS: PANTOPRAZOLE SODIUM 40 MG/VIAL IV SCH (08:52)
[2022-11-26 09:11] LABS: GLUCOSE 416 mg/dL (70-105)
[2022-11-26] MEDS ORDERED: INSULIN LISPRO 100 UNITS/ML SUBCUT NR (09:45)
[2022-11-26] MEDS ORDERED: SODIUM POLYSTYRENE SULFONATE 15 G/60 ML BOT PO NR (10:30)
[2022-11-26] MEDS: DEXT 5%/0.45% NACL 1000ML 1,000 ML IV SCH ×2 (11:47→23:50)
[2022-11-26 12:00] VITALS: BP 132/101; PULSE 84; RESP 32; TEMP 97.5
[2022-11-26 16:00] VITALS: BP 122/81; PULSE 88; RESP 17; TEMP 98.4
[2022-11-26 16:12] LABS: INDEX HEMOLYSI 1 (1-3); INDEX ICTERIC 1 (1-4); INDEX LIPEMIC 1 (1-3); POTASSIUM 3.8 mEq/L (3.5-5.1); SODIUM 140 mEq/L (136-145)
[2022-11-26 16:17] LABS: CALCIUM 7.7 mg/dL (8.5-10.1); CREATININE 0.6 mg/dL (0.6-1.3); GLUCOSE 100 mg/dL (70-105); UREA NITROGEN BLOOD 3 mg/dL (7-21)
[2022-11-26 16:23] LABS: CARBON DIOXIDE 24 mEq/L (21-32); CHLORIDE 113 mEq/L (98-107)
[2022-11-26 20:00] VITALS: BP 107/69; PULSE 86; RESP 17; TEMP 99.9
[2022-11-26] MEDS: LEVETIRACETAM 500MG PREMIX 100 ML IV SCH (21:16)
[2022-11-27 08:00] VITALS: BP 120/70; PULSE 82; RESP 19; TEMP 98.1
[2022-11-27] MEDS: LEVETIRACETAM 500MG PREMIX 100 ML IV SCH ×2 (08:28→21:47)
[2022-11-27] MEDS: PANTOPRAZOLE SODIUM 40 MG/VIAL IV SCH (08:30)
[2022-11-27] MEDS: METOCLOPRAMIDE HCL 10MG/2ML VIAL IV SCH (08:30)
[2022-11-27] MEDS: MAGNESIUM OXIDE 400MG TABLET PO SCH (08:37)
[2022-11-27] MEDS: SUCRALFATE 1 G/10 ML UDC PO SCH ×4 (08:37→21:47)
[2022-11-27] MEDS: THIAMINE HCL 100MG TABLET PO SCH (08:37)
[2022-11-27] MEDS: MULTIVITAMINS,THER W-MINERALS TABLET PO SCH (08:39)
[2022-11-27 12:00] VITALS: BP 115/75; PULSE 80; RESP 20; TEMP 98
[2022-11-27] MEDS ORDERED: LOPERAMIDE 2MG/15ML UDC PO NR (12:00)
[2022-11-27] MEDS: LORAZEPAM 2MG/ML CPJ IV PRN (13:10)
[2022-11-27] MEDS: ONDANSETRON HCL 4MG/2ML INJ IV PRN (13:23)
[2022-11-27 16:00] VITALS: BP 129/63; PULSE 74; RESP 19; TEMP 97.9
[2022-11-27 20:00] VITALS: BP 107/80; PULSE 87; RESP 20; TEMP 97.9
[2022-11-28] VITALS: BP 128/82; PULSE 91; RESP 20; TEMP 98.6
[2022-11-28] MEDS: DEXT 5%/0.45% NACL 1000ML 1,000 ML IV SCH (02:30)
[2022-11-28] MEDS: LORAZEPAM 2MG/ML CPJ IV PRN ×2 (03:41→10:42)
[2022-11-28 04:00] VITALS: BP 118/72; PULSE 96; RESP 20; TEMP 98.6
[2022-11-28 06:22] LABS: BASOPHILS % 0.6 % (0.0-2.0); EOSINOPHILS % 0.9 % (0.0-5.0); HEMATOCRIT. 25.1 % (42.0-52.0); HEMOGLOBIN. 8.6 g/dL (14.0-18.0); LYMPHOCYTES % 25.8 % (20.0-50.0); MEAN CORPUSCULAR HEMOGLOBIN 30.6 pg (28.0-32.0); MEAN CORPUSCULAR HGB CONC 34.2 g/dL (31.0-37.0); MEAN CORPUSCULAR VOLUME 89.5 fL (80.0-94.0); MEAN PLATELET VOLUME 7.2 fl (7.4-10.4); MONOCYTES % 12.2 % (2.0-8.0); NEUTROPHILS % 60.5 % (40.0-76.0); PLATELET 472 x1000/uL (130-400); RED BLOOD CELL COUNT 2.81 mill/uL (4.7-6.1); RED CELL DISTRIBUTION WIDTH 16.4 % (11.6-14.6)
[2022-11-28 07:17] LABS: CHLORIDE 109 mEq/L (98-107); INDEX HEMOLYSI 1 (1-3); INDEX ICTERIC 1 (1-4); INDEX LIPEMIC 1 (1-3); POTASSIUM 3.1 mEq/L (3.5-5.1); SODIUM 141 mEq/L (136-145)
[2022-11-28 07:24] LABS: ALANINE AMINOTRANSFERASE 16 IU/L (13-61); ALBUMIN 1.9 g/dL (3.4-5.0); ASPARTATE AMINOTRANSFERASE 8 IU/L (15-37); BILIRUBIN DIRECT < 0.1 mg/dL (0.0-0.2); BILIRUBIN TOTAL 1.2 mg/dL (0.1-1.0); CALCIUM 7.6 mg/dL (8.5-10.1); CARBON DIOXIDE 27 mEq/L (21-32); CREATININE 0.6 mg/dL (0.6-1.3); GLUCOSE 112 mg/dL (70-105); PHOSPHORUS 3.5 mg/dL (2.5-4.9); PROTEIN TOTAL 5.2 g/dL (6.0-8.3); UREA NITROGEN BLOOD 2 mg/dL (7-21)
[2022-11-28 08:00] VITALS: BP 113/67; PULSE 87; RESP 14; TEMP 97.7
[2022-11-28] MEDS: MAGNESIUM OXIDE 400MG TABLET PO SCH (08:13)
[2022-11-28] MEDS: PANTOPRAZOLE SODIUM 40 MG/VIAL IV SCH (08:13)
[2022-11-28] MEDS: MULTIVITAMINS,THER W-MINERALS TABLET PO SCH (08:13)
[2022-11-28] MEDS: LEVETIRACETAM 500MG PREMIX 100 ML IV SCH (08:13)
[2022-11-28] MEDS: SUCRALFATE 1 G/10 ML UDC PO SCH ×2 (08:13→13:24)
[2022-11-28] MEDS: THIAMINE HCL 100MG TABLET PO SCH (08:13)
[2022-11-28] MEDS ORDERED: POTASSIUM CHLORIDE 20MEQ/PACKET PO NR (09:30)
[2022-11-28 09:50] LABS: PREALBUMIN 7.9 mg/dL (20.0-40.0)
[2022-11-28] MEDS ORDERED: KETOROLAC 30MG/ML VIAL IV PRN (10:45)
[2022-11-28 12:00] VITALS: BP 112/46; PULSE 105; RESP 18; TEMP 96.9
[2022-11-28 13:41] VITALS: BP 113/67; PULSE 87; TEMP 97.7; O2SAT 100
[2022-11-28 16:00] VITALS: BP 114/75; PULSE 89; RESP 18; TEMP 97.6
== END 2022-11-28 11:59 | disposition home health service (06) | DRG 380 ==
LOC: ER 12:38 → 5EST 16:40 → EDBEDREQ 16:42 → EDBEDREQTM 16:42 → 6WST 11-26 16:40
PROVIDERS: ADMIT Hospitalist; ATTEND Hospitalist
PROC: 5A0935A Assistance with Respiratory Ventilation, Less than 24 Consecutive Hours, High Flow/Velocity Cannula (ICD-10-PCS; 2022-11-17)
PROC: 0DB68ZX Excision of Stomach, Via Natural or Artificial Opening Endoscopic, Diagnostic (ICD-10-PCS; principal; 2022-11-21)
PROC: 02HV33Z Insertion of Infusion Device into Superior Vena Cava, Percutaneous Approach (ICD-10-PCS; 2022-11-25)
PROC: B548ZZA Ultrasonography of Superior Vena Cava, Guidance (ICD-10-PCS; 2022-11-25)
DX: K22.11 Ulcer of esophagus with bleeding (principal); I21.A1 Myocardial infarction type 2; K85.90 Acute pancreatitis without necrosis or infection, unspecified; N17.0 Acute kidney failure with tubular necrosis; E87.29 Other acidosis; I47.1 Supraventricular tachycardia; F10.239 Alcohol dependence with withdrawal, unspecified; E46 Unspecified protein-calorie malnutrition; Z68.1 Body mass index [BMI] 19.9 or less, adult; K29.21 Alcoholic gastritis with bleeding; D72.825 Bandemia; E86.0 Dehydration; G40.909 Epilepsy, unspecified, not intractable, without status epilepticus; I12.9 Hypertensive chronic kidney disease with stage 1 through stage 4 chronic kidney disease, or unspecified chronic kidney disease; J44.9 Chronic obstructive pulmonary disease, unspecified; R74.01 Elevation of levels of liver transaminase levels; K74.60 Unspecified cirrhosis of liver; N18.31 Chronic kidney disease, stage 3a; D64.9 Anemia, unspecified; E83.39 Other disorders of phosphorus metabolism; E83.42 Hypomagnesemia; E87.6 Hypokalemia; K29.80 Duodenitis without bleeding; T51.0X1A Toxic effect of ethanol, accidental (unintentional), initial encounter; K76.0 Fatty (change of) liver, not elsewhere classified; F17.210 Nicotine dependence, cigarettes, uncomplicated; F41.9 Anxiety disorder, unspecified; I49.1 Atrial premature depolarization; I49.3 Ventricular premature depolarization; E87.5 Hyperkalemia; F12.90 Cannabis use, unspecified, uncomplicated; Z87.820 Personal history of traumatic brain injury; Z87.19 Personal history of other diseases of the digestive system; Z86.718 Personal history of other venous thrombosis and embolism; Z79.899 Other long term (current) drug therapy; Y90.8 Blood alcohol level of 240 mg/100 ml or more; Y92.89 Other specified places as the place of occurrence of the external cause
CPT/HCPCS: 36415; 36573; 71045; 71275; 74177; 76700; 80048; 80053; 80076; 80202; 80305; 80320; 81003; 82010; 82150; 82248; 82270; 82550; 82553; 82607; 82728; 82746; 82962; 83540; 83550; 83605; 83735; 83880; 84100; 84134; 84478; 84484; 85014; 85018; 85025; 85027; 85044; 85379; 86850; 86900; 87426; 88305; 93005; 93306; 93970; 99291; A6261; C1725; C1893; C9113; J1815; J1885; J1953; J2060; J2270; J2354; J2405; J2543; J2765; J3370; J3411; J3475; J3480; J3490; J7030; J7050; J7060; J7070; Q9967; G0480

== ENCOUNTER 2023-09-25 09:22 | Emergency (ER) | payer MEDICARE ==
[~2023-09-25] VITALS: Ht 172.7 cm; Wt 87.0 kg
[~2023-09-25 09:22] MED LIST changes: +AZIT250T12 MT; +GABA-290 MT; +HYDR-4001 MT; +LEVE1000 MT; +LEVE500T98 MT; +LORA-249 MT; +MED4 MT; +OMEP40CA20 PO; +RIVA20TA MT; +SUCR1ORA15 PO; +THIA100T72 PO; -TOPUD PO; +TRAZ-251 MT; +TRAZ300T11 MT
[2023-09-25 09:24] VITALS: O2SAT 99
[2023-09-25 12:00] VITALS: TEMP 98.2
[2023-09-25 13:32] VITALS: BP 113/77; PULSE 63; RESP 15
== END 2023-09-25 13:34 | disposition home or self-care (01) ==
LOC: ER 09:22
DX: F10.129 Alcohol abuse with intoxication, unspecified (principal); J44.9 Chronic obstructive pulmonary disease, unspecified; Y90.9 Presence of alcohol in blood, level not specified
CPT/HCPCS: 99283